=== PATIENT | male | born 1945 | race Caucasian/White ===

== ENCOUNTER 2018-04-27 21:12 | Emergency (ER) | payer MEDICARE ==
[~2018-04-27] VITALS: Ht 175.3 cm; Wt 80.0 kg
[2018-04-27] MEDS ORDERED: MORPHINE SULFATE 4 MG/ML, 1ML ONE (21:25)
[2018-04-27] MEDS ORDERED: ONDANSETRON 2MG/ML, 2ML ONE (21:25)
[2018-04-27] MEDS ORDERED: ONDANSETRON 2MG/ML, 2ML IVPush ONE (21:30)
[2018-04-27] MEDS ORDERED: MORPHINE SULFATE 4 MG/ML, 1ML IVPush PRN (21:30)
[2018-04-27] MEDS ORDERED: SODIUM CHLORIDE FLUSH 10ML SYR IVF ONE (21:30)
[2018-04-27] MEDS ORDERED: PROPOFOL 100 ML IV ONE (21:30)
[2018-04-27] MEDS ORDERED: PROPOFOL 10 MG/ML, 20ML IVPush ONE (21:30)
[2018-04-27] MEDS ORDERED: PROPOFOL 10 MG/ML, 20ML ONE (21:32)
[2018-04-27 22:20] VITALS: BP 157/88
[2018-04-27] MEDS ORDERED: HYDROcodone/APAP 5/325 TABLET ONE (22:28)
[2018-04-27] MEDS ORDERED: HYDROcodone/APAP 5/325 TABLET PO ONE (22:30)
== END 2018-04-27 23:02 | disposition home or self-care (01) ==
LOC: ED 22:45
DX: S43.004A Unspecified dislocation of right shoulder joint, initial encounter (principal); W01.0XXA Fall on same level from slipping, tripping and stumbling without subsequent striking against object, initial encounter; Y93.89 Activity, other specified; Y92.009 Unspecified place in unspecified non-institutional (private) residence as the place of occurrence of the external cause; Y99.8 Other external cause status
CPT/HCPCS: 23650; 73030; 96374; 96375; 99285; J2405